=== PATIENT | female | born 1975 ===

== ENCOUNTER 2021-10-27 10:07 | Outpatient (CLI) | payer OTHER | END 2021-10-27 19:10 | disposition home or self-care (01) | LOC: MAMMO 10:07 | PROVIDERS: ATTEND Family Medicine | DX: N64.9 Disorder of breast, unspecified (principal); N63.10 Unspecified lump in the right breast, unspecified quadrant; N64.3 Galactorrhea not associated with childbirth | CPT/HCPCS: G0279 ==